=== PATIENT | female | born 1965 | race Caucasian/White ===

== ENCOUNTER → 2016-06-17 | Outpatient (CLI) | payer OTHER ==
[~2016-06-17] MED LIST: ALBUAER2 INH; ASCO1CAP3 PO; CALC-393 PO; CHOL1000 PO; ESTR0.034 TD; IBUP1CAP9 PO; MULT-884 PO
--- NOTE | 2016-06-17 16:11 | MAMMOGRAPHY REPORT ---
BILATERAL DIGITAL SCREENING MAMMOGRAM TOMOSYNTHESIS WITH CAD: 06/17/2016 CLINICAL HISTORY: Routine screening. Patient has no complaints. TECHNIQUE: Breast tomosynthesis in addition to standard 2D mammography was performed. Current study was also evaluated with a Computer Aided Detection (CAD) system. COMPARISON: Comparison is made to exams dated: 06/20/2015 mammogram, 06/20/2015 ultrasound biopsy, ultrasound, 06/18/2015 mammogram, 06/12/2015 mammogram, and 06/10/2014 mammogram - [facility]. BREAST COMPOSITION: There are scattered areas of fibroglandular density in both breasts. FINDINGS: No suspicious masses, calcifications, or areas of architectural distortion are noted in e ither breast. There has been no significant interval change compared to prior exams. The previously biopsied right axillary lymph node is smaller and less prominent compared to the June 2015 exam; a biopsy marker clip is seen within the lymph node. IMPRESSION: ACR BI-RADS CATEGORY 2: BENIGN There is no mammographic evidence of malignancy. A 1 year screening mammogram is recommended. The p atient will receive written notification of the results. Approximately 10% of breast cancers are not detected with mammography. A negative mammographic repor t should not delay biopsy if a clinically suggestive mass is present. Bre Sharma M.D. /:06/17/2016 14:56:13 Sludge Filtration Operator: Meg Shirley, [facility] letter sent: Normal 1/2 BI-RADS Code: ACR BI-RADS Category 2: Benign
== END | disposition home or self-care (01) ==
LOC: C.MAMM 08:01
PROVIDERS: ATTEND Obstetrics & Gynecology
DX: Z12.31 Encounter for screening mammogram for malignant neoplasm of breast (principal)

== ENCOUNTER → 2016-07-13 | Outpatient (CLI) | payer OTHER ==
--- NOTE | 2016-07-14 08:53 | PULMONARY FUNCTION TEST ---
CLINICAL DATA: A 51-year-old female with a height of 66 inches and a weight of 200 pounds, referred by Dr. Michael Mahmood for evaluation of asthma and cough. Spirometry pre- and post-bronchodilator, lung volumes, and diffusion capacity were performed. FINDINGS: Pre-bronchodilator spirometry is within normal limits. FVC was 87% of predicted. FEV1 was 89% of predicted. [id number] was 103% of predicted. There was slight improvement after inhaled bronchodilator with a 6% improvement in FVC to 92% of predicted, a 7% improvement in FEV1 to 95% of predicted, and a 7% improvement in [id number] to 110% of predicted. Lung volumes were normal. DLCO was normal. IMPRESSION: Normal baseline spirometry with slight improvement after inhaled bronchodilator, possibly consistent with mild asthma. Normal lung volumes and normal DLCO. MTDD
== END | disposition home or self-care (01) ==
LOC: C.RC 10:10
PROVIDERS: ATTEND Family Medicine
DX: J45.20 Mild intermittent asthma, uncomplicated (principal)

== ENCOUNTER → 2017-03-02 | Outpatient (CLI) | payer OTHER | END | disposition home or self-care (01) | LOC: C.PAPS 16:21 | PROVIDERS: ATTEND Obstetrics & Gynecology | DX: Z12.4 Encounter for screening for malignant neoplasm of cervix (principal) ==

== ENCOUNTER → 2017-06-22 | Outpatient (CLI) | payer OTHER ==
--- NOTE | 2017-06-22 15:09 | MAMMOGRAPHY REPORT ---
BILATERAL DIGITAL SCREENING MAMMOGRAM TOMOSYNTHESIS WITH CAD: 06/22/2017 CLINICAL HISTORY: Routine screening examination. TECHNIQUE: Breast tomosynthesis in addition to standard 2D mammography was performed. Current study was also evaluated with a Computer Aided Detection (CAD) system. COMPARISON: Comparison is made to exams dated: 06/17/2016 mammogram, 06/20/2015 mammogram, 06/20/2015 u ltrasound biopsy, 06/18/2015 ultrasound, 06/12/2015 mammogram, and 06/10/2014 mammogram - [facility]. BREAST COMPOSITION: There are scattered areas of fibroglandular density in both breasts. FINDINGS: A stable ribbon-shaped biopsy marker clip is seen within the lymph node in the right axilla on the MLO view. The parenchymal pattern is unchanged. No new suspicious mass, architectural disto rtion or cluster of microcalcifications is seen. IMPRESSION: ACR BI-RADS CATEGORY 1: NEGATIVE There is no mammographic evidence of malignancy. A 1 year screening mammogram is recommended. The pa tient will receive written notification of the results. Approximately 10% of breast cancers are not detected with mammography. A negative mammographic report should not delay biopsy if a clinically suggestive mass is present. Rhoda Prescott M.D. ay/:06/22/2017 08:02:28 Drawing Tracer: Meg BLUNT(Tricia)(M), [facility] letter sent: Normal 1/2 BI-RADS Code: ACR BI-RADS Category 1: Negative
== END | disposition home or self-care (01) ==
LOC: C.MAMM 07:36
PROVIDERS: ATTEND Obstetrics & Gynecology
DX: Z12.31 Encounter for screening mammogram for malignant neoplasm of breast (principal)